=== PATIENT | female | born 1980 | race African-American/Black ===

== ENCOUNTER 2016-08-03 08:59 | Emergency (ER) | payer OTHER ==
[2016-08-03 09:05] VITALS: TEMP 97.3; BMI 33.2
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
[2016-08-03 10:40] LABS: URINE APPEARANCE CLEAR; URINE BILIRUBIN NEGATIVE (NEGATIVE); URINE BLOOD NEGATIVE (NEGATIVE); URINE COLOR STRAW; URINE GLUCOSE (UA) NEGATIVE (NEGATIVE); URINE KETONE NEGATIVE (NEGATIVE); URINE LEUK ESTERASE NEGATIVE (NEGATIVE); URINE NITRITE NEGATIVE (NEGATIVE); URINE PROTEIN NEGATIVE (NEGATIVE); URINE UROBILINOGEN NEGATIVE E.U./dl (0.2-1.0)
[2016-08-03] MEDS ORDERED: IBUPROFEN 400 MG TABLET (FP) PO ONE ×2 (12:15→12:18)
[2016-08-03 13:37] VITALS: BP 107/82; PULSE 73
== END 2016-08-03 13:37 | disposition home or self-care (01) ==
LOC: JER 08:59
DX: S09.8XXA Other specified injuries of head, initial encounter (principal); G44.309 Post-traumatic headache, unspecified, not intractable; Y04.2XXA Assault by strike against or bumped into by another person, initial encounter; Y93.89 Activity, other specified; Y92.128 Other place in nursing home as the place of occurrence of the external cause; Y99.0 Civilian activity done for income or pay; Y07.59 Other non-family member, perpetrator of maltreatment and neglect
CPT/HCPCS: 70450-TC; 70486-TC; 72125-TC; 81003; 84703; 99282-25